=== PATIENT | male | born 2000 | race African-American/Black ===

== ENCOUNTER 2025-03-20 21:19 | Emergency (ER) | payer MEDICAID, SELFPAY ==
[2025-03-20 21:23] VITALS: BP 136/70; PULSE 68; RESP 12; TEMP 36.9; O2SAT 99; BMI 18.3
--- OUTSIDE RECORDS SUMMARY | 2025-03-21 00:04 | XMS_ITS | Clinical Summary ---
Author Organization [facility] Address [address] [place] [address] Care Team Providers Care Cover Assembler Name Role Phone Unavailable Primary Care Provider Unavailabl e Source Comments PLEASE NOTE, if this patient is a minor, it may be UNLAWFUL to discuss sensitive information that is contained in these records (such as FAMILY PLANNING, MENTAL HEALTH or SUBSTANCE ABUSE) with the minor patient's parent or other person without the patient's specific authorization.[facility] Resolved Problems Problem Noted Date Diagnosed Date Resolved Date Delusional disorder ([facility]) 05/15/2024 06/15/2024 Social History Tobacco Use Types Packs/Day Years Used Date Smoking Tobacco: Never Assessed Social Connections Answer Date Recorded Connectedness 0 05/08/2024 Financial Resource Strain Answer Date R ecorded Financial Resource Strain 0 2023 Stress Answer Date Recorded Stress 0 05/08/2024 Physical Activity Answer Date Recorded Physical Activity 0 05/08/2024 Food Insecurity Answer Date Recorded Food 0 05/08/2024 Transportation Needs Answer Date Record ed Transportation 0 05/08/2024 Housing Stability Answer Date Recorded Housing 0 05/08/2024 Safety and Environment Answer Date Boubacar rded Safety 0 05/08/2024 Utilities Answer Date Recorded Utilities 0 05/08/2024 Employment Answer Date Recorded Stress 0 05/08/2024 Sex and Gender Information Value Date Recorded Sex Assigned at Not on file Legal Sex Male 11:10 AM PST Gender Identity Male 05/08/2024 11:44 AM PST Sexual Orientation Not on file Last Filed Vital Signs Vital Sign Reading Time Taken Comments Blood Pressure 119/83 05/09/2024 1:19 PM EST Pulse 78 05/09/2024 1:19 PM EST Temperature 36.9 C (98.5 F) 05/09/2024 1:19 PM EST Respiratory Rate - - Oxygen Saturation 100% 05/09/2024 1:19 PM EST Inhaled Oxygen Concentration - - Weight 64.4 kg (142 lb) 05/09/2024 1:19 PM EST Height 185.4 cm (6' 1 ) 05/09/2024 1:19 PM EST Body Mass Index 18.73 05/09/2024 1:19 PM EST Plan of Treatment Health Maintenance Due Date Last Done Comments Hepatitis C Screening 2002 Tobacco Screening 2002 Imm-Varicella (1 of 2 - 13+ 2-dose series) 2015 HIV Screening 2017 Imm-HPV (1 - Male 3-dose series) 2017 Imm-DTaP/Tdap/Td (1 - Tdap) 2021 Imm-Hepatitis B (1 of 3 - 19+ 3-dose series) Alcohol and Drug Screen 06/28/2024 Depression Annual Screen 06/28/2024 05/09/2024 [id number] ( season) 2025 Imm-Influenza (#1) 2025 Anxiety Screening 05/09/2025 05/09/2024 Hypertension Screening (#1) 05/09/[address] [place] MEDICA[place] Member Subscriber Plan / Payer (Ef fective 2024-Present) Name:Eric Craven Relation to Subscriber:Self Name:Eric Craven Payer ID:[id number] Group ID:Not on file Type:Medicaid Address: [address] [id number]
--- OUTSIDE RECORDS SUMMARY | 2025-03-21 00:04 | XMS_ITS ---
Author Name [facility] Organization Unknown Care Team Organization Name Specialty Phone Email Start Date End [facility] ([facility]) 2023 [facility] NO PCP Primary Care 10/20/2023 [facility] 06/25/2022
--- NOTE | 2025-03-21 00:14 | PC.NURSE ---
Assumed care of pt presents with left side neck pain, pt states pain started on the 03/18/2025, pt states that he felt a crack in his shoulder then went to sleep and has had a soreness since thin, denies sob, pt states when he takes a deep inspiration his neck hurts , [id number], resting comfortably in stretcher
[2025-03-21 00:27] VITALS: BP 126/80; PULSE 66; RESP 14; TEMP 36.8; O2SAT 98
--- NOTE | 2025-03-21 01:37 | ED_ITS ---
HPI - Neck Pain/Injury General Chief Complaint: Neck Pain/Injury Stated Complaint: neck pain Time Seen by Provider: 03/21/25 01:04 Source: patient Mode of arrival: ambulatory Limitations: no limitations History of Present Illness ED Provider: Dr. Max Singer HPI Narrative: 25-year-old male with no significant past medical history who presents emergency department for evaluation of 3 days of left-sided neck pain and spasm. Patient states that the day before onset of his symptoms he was moving boxes and felt a cracking sensation in his left shoulder area. He states the next day he woke up and had difficulty moving his neck. He states that since that time he has had increased pain in his left neck area which has gotten significantly worse to the point where he is unable to turn his head to the left without significant pain. He denied any numbness or weakness of his upper extremities. Pain does not radiate down his arms. He denied fever, chills, nausea vomiting, cough, rhinorrhea. He denies injection drug use. Related Data Previous Rx's ?Medication ?Instructions ?Recorded cyclobenzaprine 10 mg tablet 10 mg PO TID PRN pain, mu scle 03/21/25 spasm #15 tabs oxycodone 5 mg tablet 5 mg PO Q4H PRN pain #10 tab s 03/21/25 prednisone 20 mg tablet 60 mg (3 x 20 mg) PO DAILY 5 days 03/21/25 #15 tabs Allergies Allergy/AdvReac Type Severity Reaction Status Date / Time ibuprofen (From Motrin) Allergy Swelling Verified 03/20/25 21:29 Review of Systems Review of Systems: Yes all other systems are reviewed and are negative [facility] Social History Social History Advance Directives: No Do you have a plan to hurt others: No Plan Physical Exam Vital Signs: Vital Signs: Last Vital Signs Temp 98.2 F 03/21/25 00:27 Pulse 66 03/21/25 00:27 Resp 14 03/21/25 00:27 BP 126/80 03/21/25 00:27 Pulse Ox 98 03/21/25 00:27 O2 Del Method Room Air 03/21/25 00:27 BMI result Body Mass Index 18.3 Vital signs were normal Exam: General: Awake, alert , appears to be in distress secondary to his neck pain, any movement to left causes severe pain Head: Normocephalic, atraumatic EENT: PERRL, sclera and conjunctiva are normal, mouth with no erythema or exudates Neck: Significant tenderness and spasm with palpation of the left trapezius muscle, no C-spine tenderness Neuro: General: ?Awake, alert, oriented, normal speech Cranial nerves: ?Cranial 12 are intact Strength: ?Moves all extremities symmetrically, strength 5/5 Psych: Pleasant, cooperative Medical Decision Making Medical Decision Making MDM Narrative: 25-year-old male with no significant past medical history who presents emergency department for evaluation of 3 days of left-sided neck pain and spasm. Patient states that the day before onset of his symptoms he was moving boxes and felt a cracking sensation in his left shoulder area. He states the next day he woke up and had difficulty moving his neck. He states that since that time he has had increased pain in his left neck area which has gotten significantly worse to the point where he is unable to turn his head to the left without significant pain. He denied any numbness or weakness of his upper extremities. Pain does not radiate down his arms. He denied fever, chills, nausea vomiting, cough, rhinorrhea. He denies injection drug use. Vital signs were normal. Exam did reveal significant tenderness and spasm of his left trapezius muscle with difficulty with range of motion due to spasm and pain. Neurologic exam was normal. Differential diagnosis: ?Includes but is not limited to trapezius muscle injury, trapezius muscle spasm, cervical disc disease Course: Patient's presentation physical examination is consistent with musculoskeletal strain with spasm of the left trapezius muscle. I did discuss this with the tacho rene. The patient was treated here in the emergency department with Tylenol 975 mg orally, Flexeril 10 mg orally and oxycodone 5 mg orally. The patient gets facial swelling with NSAIDs therefore he was given prednisone 60 mg orally as an anti-inflammatory medication. I did discuss the treatment with the patient. He was given prescriptions for Flexeril, prednisone and oxycodone. He was given printed and verbal instructions and discharged home. Differential Diagnosis Differential Diagnoses: The differential diagnosis associated with the presentation includes (See above) Admission/Observation Consideration of admission/observation: Escalation of care including admission/observation considered (No) Prescription Management I considered prescription management with: Pain Medication (Oxycodone, prednisone) and Other Anti spasmodic: Cyclobenzaprine Discharge Plan Discharge Clinical Impression: Muscle spasms of neck Strain of neck muscle Qualifiers: Encounter type: initial encounter Qualified Code(s): S16.1XXA - Strain of muscle, fascia and tendon at neck level, initial encounter Patient Disposition: Home, Self-Care Instructions: Cervical Sprain (ED) Additional Instructions: Your exam is consistent with strain of your left trapezius muscle causing spasm and pain. Take prednisone 20 mg pills, 3 pills once a day for 5 days. While you ?are taking prednisone, do not take any NSAIDs (Motrin, Advil, ibuprofen, Aleve, naproxen). Take Tylenol (acetaminophen) 500 mg pills, 2 pills every 6 hours as needed for pain. This has an [id number] medication does not require a prescription. For pain not relieved by Tylenol or prednisone, take oxycodone 5 mg pills, 1 pill every 4 hours as needed for pain. Do not drive or work while taking this medication since they can cause sleepiness. Oxycodone is a narcotic medication that can be addicting. If you are concerned about addiction you can ask the pharmacist for less pills or do not get this prescription filled. Take Flexeril (cyclobenzaprine) 10 mg pills, 1 pill every 6-8 hours as needed for pain or spasm. ?This medication will make you sleepy. ?Do not drive or work while taking this medication. Apply ice for 15 minutes and then 1 hour later apply a heating pad on low for 15 minutes. Do this 4 to 6 times a day to see if this helps improve with the pain. Follow-up with your doctor in 2 days. Please return to the emergency department if your symptoms get worse or if you develop any symptoms that are concerning to you. Prescriptions: New cyclobenzaprine 10 mg tablet 10 mg PO TID PRN (Reason: pain, muscle spasm) Qty: 15 0RF prednisone 20 mg tablet 60 mg PO DAILY 5 Days Qty: 15 0RF oxycodone 5 mg tablet 5 mg PO Q4H PRN (Reason: pain) Qty: 10 0RF Rx Instructions: Partial Fill upon patient request. Print Language: Nepalese
[2025-03-21] MEDS: oxyCODONE HCl Immed Release 5 MG TABLET PO (01:54)
[2025-03-21 02:02] VITALS: BP 126/78; PULSE 64; RESP 16; TEMP 36.3; O2SAT 99
== END 2025-03-21 02:17 | disposition home or self-care (01) ==
PROVIDERS: Emergency Provider Emergency Medicine Emergency Medical Services
DX: S16.1XXA Strain of muscle, fascia and tendon at neck level, initial encounter (principal); M62.838 Other muscle spasm; M54.2 Cervicalgia; M25.512 Pain in left shoulder; X58.XXXA Exposure to other specified factors, initial encounter; Y93.9 Activity, unspecified; Y92.9 Unspecified place or not applicable; Y99.8 Other external cause status
CPT/HCPCS: 99283